=== PATIENT | female | born 1990 | race Two or more races ===

== ENCOUNTER → 2017-01-03 | Outpatient (CLI) | payer BC ==
--- NOTE | 2017-01-03 11:56 | RAD ---
Indication survey. Obstetrical ultrasound examination was performed. No prior imaging is available. The maternal cervix measures approximately 6 cm in greatest dimension. There is a small amount of fluid at the top of the cervix. Additionally the top of the cervix appears slightly open relative to the remainder. Clinical correlation advised. The placenta overlies the cervix on today's exam. It is conceivable that the placenta will "migrate" as the progresses but partial or complete placenta previa is not excluded and follow-up imaging is advised. (Most of the placenta is posterior in position). The amount of amniotic fluid is normal. The biparietal diameter of 4.1 cm, head circumference of 14.2 cm, abdominal circumference of 12.2 cm and femoral length of 2.2 cm are compatible with a gestational age of approximately 17 weeks 4 days. By ultrasound the expected date of confinement is 06/09/2017. A heart rate of 144 was documented. No gross anomalies were seen. A 4 chambered heart could not be confirmed. There was limited visualization of the bladder, kidneys, spine and brain largely secondary to positioning.. A three-vessel cord was seen. The current presentation is breech IMPRESSION: Single viable intrauterine fetus of approximately 17 weeks 4 days. At least a portion of the placenta overlies the cervix on today's exam. Partial or complete placenta previa not excluded. Follow-up imaging advised. The top of the cervix also appears slightly dilated and there is a small amount of fluid at the junction of the cervix and the overlying placenta. Limited survey. No gross anomalies seen.
== END | disposition home or self-care (01) ==
LOC: US 10:25
PROVIDERS: ATTEND Obstetrics & Gynecology
DX: O09.92 Supervision of high risk pregnancy, unspecified, second trimester (principal); O26.842 Uterine size-date discrepancy, second trimester; Z3A.17 17 weeks gestation of pregnancy
CPT/HCPCS: 76805

== ENCOUNTER → 2019-04-15 | Outpatient (CLI) | payer BC ==
--- NOTE | 2019-04-15 16:26 | RAD ---
EXAM: Obstetric sonogram. HISTORY: High risk . Placenta previa. TECHNIQUE: Sonographic imaging of a gravid uterus was performed. COMPARISON: None. FINDINGS: There is a single intrauterine fetus in cephalic presentation with a heart rate of 143 bpm. The cervix is closed and measures 3.5 cm in length. The amniotic fluid index is normal at 10.6 cm. There is a posterior low-lying placenta extending to 2.3 cm from the internal cervical os. The biparietal diameter is 6.9 cm, corresponding with 28 weeks and 1 day. The head circumference is 25.6 cm, corresponding with 27 weeks and 6 days. The abdominal circumference is 23.5 cm, corresponding with 27 weeks and 6 days. The femoral length is 5.0 cm, corresponding with 26 weeks and 6 days. The estimated gestational age based on combined ultrasound measurements is 27 weeks and 5 days and the estimated weight is 1087 g. The estimated due date is 07/10/2019. The stomach and bladder are unremarkable. There is a four-chamber heart. The remainder of the anatomy is not formally assessed. IMPRESSION: 1. Single intrauterine fetus in cephalic presentation with a normal heart rate and gestational age based on ultrasound measurements of 27 weeks and 5 days. 2. Low-lying placenta, extending to 2.3 cm from the internal cervical os. Electronically signed by: Regi Patrick MD (04/15/2019 4:23 PM) [id number]
== END | disposition home or self-care (01) ==
LOC: US 10:32
PROVIDERS: ATTEND Obstetrics & Gynecology
DX: O44.42 Low lying placenta NOS or without hemorrhage, second trimester (principal); Z3A.27 27 weeks gestation of pregnancy
CPT/HCPCS: 76805